=== PATIENT | male | born 1955 | race Caucasian/White ===

== ENCOUNTER 2018-11-12 16:22 | Emergency (ER) | payer OTHER ==
[~2018-11-12] VITALS: Ht 175.3 cm; Wt 94.0 kg
--- NOTE | 2018-11-12 16:31 | NUR ---
63 Y/O MALE BIB AMBULANCE FROM URGENT CARE WITH C/O HIGH HEART RATE. PER PT "I STARTED GETTING SOME PALPATATIONS. I CALLED MY EMAIL DESIGNER IN [place], HE SAID TO GO SOMEWHERE TO GET AN EKG. I WENT TO THE AND THEY SENT ME HERE TO GET CHECKED OUT FURTHER. I TOOK TWO 100 MG FLECANIDE. I HAVE THOSE PILLS IN CASE THIS HAPPENS. I TOOK ONE 81 MG ASA THIS MORNING." NO ACUTE DISTRESS NOTED. NO C/O CP, SOB. PT PLACED ON CONT PULSE OX, NIBP, MANAGER AGRICULTURAL.
--- NOTE | 2018-11-12 16:34 | NUR ---
PIV ESTABLISHED LEAFLET OR NEWSPAPER DELIVERER. 150mg NS ADMINISTERED LEAFLET OR NEWSPAPER DELIVERER.
--- NOTE | 2018-11-12 16:34 | NUR ---
PT AMBULATORY WITH STEADY GAIT TO BATHROOM. PT STATES "I DON'T FEEL DIZZY. I'M FINE TO WALK TO THE RESTROOM."
[2018-11-12] MEDS ORDERED: ASPIRIN 81 MG TABLET CHEW ONE (16:43)
[2018-11-12 17:30] LABS: BASOPHILS # (AUTO) 0.02 x10^3/uL (0-0.1); BASOPHILS % (AUTO) 0 % (0-1); EOSINOPHILS # (AUTO) 0.13 x10^3/uL (0-0.4); EOSINOPHILS % (AUTO) 1 % (1-7); LYMPHOCYTES # (AUTO) 2.24 x10^3/uL (1-3.4); LYMPHOCYTES % (AUTO) 22 % (22-44); MD NO; MEAN CORPUSCULAR HEMOGLOBIN 28.6 pg (27.5-34.5); MEAN CORPUSCULAR HGB CONC 33.3 g/dL (33.2-36.2); MEAN CORPUSCULAR VOLUME 85.8 fL (81-97); MEAN PLATELET VOLUME 7.9 fL (7.4-10.4); MONOCYTES # (AUTO) 0.87 x10^3/uL (0.2-0.8); MONOCYTES % (AUTO) 9 % (2-9); NEUTROPHILS # (AUTO) 6.96 x10^3/uL (1.8-6.8); NEUTROPHILS % (AUTO) 68 % (42-75); PLATELET COUNT 315 x10^3/uL (130-400); RED BLOOD COUNT 5.38 x10^6/uL (4.38-5.82); RED CELL DISTRIBUTION WIDTH 12.5 % (9.4-14.8)
[2018-11-12] MEDS ORDERED: SODIUM CHLORIDE FLUSH 10ML SYR IVF ONE (17:30)
[2018-11-12 17:38] LABS: ALBUMIN 4.1 g/dL (3.4-5.0); ANION GAP 7 mmol/L (5-15); CALCIUM 8.8 mg/dL (8.5-10.1); CHLORIDE 114 mmol/L (98-107); CREATININE 0.98 mg/dL (0.7-1.3)
[2018-11-12] MEDS ORDERED: PROPOFOL 10 MG/ML, 20ML ONE (17:48)
--- NOTE | 2018-11-12 17:56 | NUR ---
LATE ENTRY FOR 1730 PT AMBULATORY WITH STEADY GAIT TO AND BACK FROM BATHROOM. NO ACUTE DISTRESS NOTED. NO OTHER NEEDS REQUESTED AT THIS TIME.
--- NOTE | 2018-11-12 17:58 | NUR ---
PT TO BE CARDIOVERTED PER EDMD. TIA LOPEZ BEDSIDE TO ASSIST WITH CARDIOVERSION
[2018-11-12] MEDS ORDERED: PROPOFOL 10 MG/ML, 20ML IVPush ONE (18:00)
[2018-11-12] MEDS ORDERED: APIXABAN 5 MG TABLET PO ONE (18:30)
--- NOTE | 2018-11-12 18:34 | NUR ---
ER BORING MACHINE OPERATOR, JOHN AT BEDSIDE TO ASSIST WITH CARDIOVERSION. PATIENT ON CONTINOUS MONTIORING, CODE CART AT BEDSIDE. PATIENT HOOKED UP TO PADS, PER DR. RHODES'S PLACEMENT. PATIENT HAS MANY QUESTIONS PRIOR TO PROCEDURE. ALL QUESTIONS ADDRESSED. PATIENT SIGNED CONSENT. WHO FORM COMPLETED. PLEASE REFERENCE WHO FORM FOR VITAL SIGNS. PATIENT WITH IV LAC. IVF, NS, RUNNING TKO. ED MD TO ADMINISTER 100MG PROPOFOL AT 1814. PATIENT TOLERATED MEDICATION. PATIENT WAS SHOCKED X1 AT 120J. PATIENT CONVERTED TO NSR AT 70. MAINTAINED SATS ABOVE 95 ON 2L. PATIENT AWAKE AND ANSWERS QUESTIONS WITH NO DISTRESS. CALLED PATIENTS TO LET HER KNOW PATIENT TOELRATED PROCEDURE WELL. REPORT GIVEN TO ARTEMIO WEBER.
--- NOTE | 2018-11-12 18:35 | NUR ---
PT AWAKE AND ORIENTED. NO ACUTE DISTRESS NOTED. NO NEEDS REQUESTED AT THIS TIME.
--- NOTE | 2018-11-12 18:40 | NUR ---
100MG PROPOFOL WASTED WITH MACK WEBER.
--- NOTE | 2018-11-12 19:03 | NUR ---
bedside report to TIA Cifuentes
[2018-11-12] MEDS ORDERED: APIXABAN 5 MG TABLET ONE (19:08)
[2018-11-12 19:35] VITALS: BP 131/85
--- NOTE | 2018-11-12 19:36 | NUR ---
REPOT FROM EUGENE WEBER. PT GIVEN A SNACK AND ELIQUIS. PT TO BE DISCHARGED
--- NOTE | 2018-11-12 20:30 | NUR ---
pt discharged by ED sup. pt given cab voucher for safe discharge home.
== END 2018-11-12 20:35 | disposition home or self-care (01) ==
LOC: ED 19:55
DX: I48.0 Paroxysmal atrial fibrillation (principal)
CPT/HCPCS: 36415; 80048; 82040; 83735; 85025; 92960; 93005; 99291; J2704